=== PATIENT | male | born 1955 | race Caucasian/White ===

== ENCOUNTER 2020-06-08 10:25 | Observation (INO) ==
--- NOTE | 2020-05-07 21:50 | PAT Medication Instructions ---
Medication Instructions Date of Service May 07, 2020 Home Medications Medication Instructions Recorded cabergoline 0.5 mg tablet See Rx Instructions .ROUTE 01/10/20 .COMPLEX #14 tab Wheeled Walker #1 ea 04/22/20 atorvastatin 40 mg tablet 40 mg PO HS celecoxib 200 mg capsule 200 mg PO QAM cholecalciferol (vitamin D3) 50 mcg (2,000 unit) tablet 2,000 units PO DAILY losartan 50 mg tablet 50 mg PO HS testosterone 1.62 % (40.5 mg/2.5 gram) transdermal gel packet multivitamin 1 tab PO DAILY cabergoline 0.5 mg tablet qM/F Continue as directed testosterone 1.62 % (40.5 mg/2.5 gram) transdermal gel packet (do not place near surgical site) cabergoline 0.5 mg tablet qM/F (OK to take day of surgery if scheduled) ASK your surgeon for instructions celecoxib 200 mg capsule 200 mg PO QAM DO NOT take the morning of surgery cholecalciferol (vitamin D3) 50 mcg (2,000 unit) tablet 2,000 units PO DAILY multivitamin 1 tab PO DAILY Take evening before surgery atorvastatin 40 mg tablet 40 mg PO HS losartan 50 mg tablet 50 mg PO HS Other Notes If you have any questions please call us at [phone] or [phone] or [phone] or [phone]
--- NOTE | 2020-05-08 11:04 | Anesthesiology Consultation ---
Date of Service May 08, 2020 Assessment & Plan (1) Encounter for pre-operative examination: COVID Status: As of 05/08 assessment, patient denies travel to endemic area, known exposure/sick contacts, or symptoms of COVID19. He admits he has only been wearing a mask in public when it is enforced. Patient instructed to follow strict social distancing guidelines, wear a mask in public and avoid travel for 14 days prior to surgery. Preoperative COVID19 testing to be completed prior to surgery. Patient made aware to self-isolate as much as possible between COVID testing and surgery. *Pt is anxious re: spinal anesthesia and awareness during surgery. Reassurance provided. Chart Review Chart Review: Acceptable Risk for Surgery and Patient seen in Pre Admission Testing Teaching & Discussion Instructed NPO after midnight before surgery, except medications with 15 cc of water. Medication instructions provided according to the PAT guidelines. History Surgery Operation Date: 06/08/20 13:15 Proposed Procedures p Right Total Knee Replacement - James Rinaldi MD Height/Weight Height: 5 ft 8 in Weight: 80.6 kg Allergies Allergy/AdvReac Type Severity Reaction Status Date / Time No Known Drug Allergies Allergy Verified 05/05/20 13:51 Medications Home Medications Medication Instructions Recorded Confirmed Last Taken atorvastatin 40 mg tablet 40 mg PO HS 10/24/19 05/05/20 Unknown celecoxib 200 mg capsule 200 mg PO QAM 10/24/19 05/05/20 Unknown cholecalciferol (vitamin D3) 50 2,000 units PO DAILY 10/24/19 05/05/20 Unknown mcg (2,000 unit) tablet losartan 50 mg tablet 50 mg PO HS 10/24/19 05/05/20 Unknown testosterone 1.62 % (40.5 mg/2.5 See Rx Instructions TD .COMPLEX 10/24/19 05/05/20 Unknown gram) transdermal gel packet multivitamin 1 tab PO DAILY 11/14/19 05/05/20 Unknown cabergoline 0.5 mg tablet See Rx Instructions .ROUTE 01/10/20 05/05/20 Unknown .COMPLEX #14 tab Wheeled Walker #1 ea 04/22/20 Unknown Past Medical History Medical History (Updated 05/08/20 @ 16:19 by Iain Mistry) Bilateral knee pain Degenerative arthritis of knee, bilateral DJD (degenerative joint disease) of knee Hyperlipidemia Hypertension 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 On Cabergoline. Exercise / Class Metabolic Activity II 4-5 Yardwork/Stairs/Walk up hill (Denies CP or SOB with 1 FOS, would be more active if not for knee pain) Past Family History Family History Other No family history of adverse response to anesthesia Past Surgical History Surgical History History of colonoscopy History of cystoscopy urethra dilation S/P wisdom tooth extraction Past Anesthesia History No Hx of Anesthesia Complications and No Family Hx of Anesthesia Complications History of PONV No Hx of PONV and No Hx of Motion Sickness Social History Smoking Status: Never smoker tobacco type: smokeless tobacco Do You Dip or Chew Tobacco: No (quit 15 years ago) Hx Alcohol Use: Yes Alcohol type: hard liquor alcohol intake frequency: a few times a month Hx Substance Use: No substance use type: does not use Review of Systems Pt denies any recent chest pain, shortness of breath, palpitations, cough, fever or URI. Physical Exam Vital Signs BP: 147/93 (pt is pretty anxious today) P: 60bpm SPO2: 98% RA T: 98.6 F R: 12 ENMT Mouth: no dental restorations, no chipped teeth and no loose teeth Thyromental Distance: < 3.5 Finger Breadths (3) Mallampati Class: I Neck normal visual inspection and + facial hair (thin mustache); neck extension not limited Respiratory normal respiratory effort Auscultation: lungs clear to auscultation bilaterally Cardiovascular Rate/Rhythm: regular rate and regular rhythm Heart Sounds: no murmur Extremities: no edema Testing Laboratory Results 05/08/20 11:20 05/08/20 11:20 PT 10.0 Seconds (9.0-12.0) 05/08/20 11:20 INR 0.9 (0.9-1.1) 05/08/20 11:20 APTT 28.2 Seconds (21.0-31.0) 05/08/20 11:20 Blood Type O Positive 05/08/20 11:20 Antibody Screen NEGATIVE 05/08/20 11:20 Electrocardiogram Date: 05/08/20 Findings: + SB @ (58bpm) Chest X-Ray Date: 05/08/20 Findings: + NAD
--- NOTE | 2020-05-08 11:58 | XRay Report ---
XR chest Pre-admission PA/Lat CLINICAL HISTORY: Preoperative chest COMPARISON STUDY: No previous studies for comparison. FINDINGS: The cardiac and mediastinal contours are normal. There is no evidence of focal pulmonary co nsolidation. There is no evidence of failure. No pleural effusions are visualized.[ IMPRESSION: No active disease in the chest. ACT 112: Negative or not required by law. Electronically signed by: Ford Waters M.D. 05/08/2020 11:57 AM
[2020-05-08 12:22] LABS: Basophils # (auto) 0.02 K/uL (0-0.2); Basophils % (auto) 0.3 %; Eosinophils # (auto) 0.11 K/uL (0-0.5); Eosinophils % (auto) 1.8 %; Hematocrit (blood only) 39.8 % (42-52); Hemoglobin 13.5 g/dL (14.0-18.0); Immature Granulocytes # (auto) 0.01 K/uL (0.00-0.02); Immature Granulocytes % (auto) 0.2 %; Lymphocytes # (auto) 1.71 K/uL (1.2-3.4); Mean Corpuscular Hemoglobin 29.9 pg (25-34); Mean Corpuscular Hgb Conc 33.9 g/dL (32-36); Mean Corpuscular Volume 88.1 fL (80-100); Mean Platelet Volume 9.5 fL (7.4-10.4); Monocytes # (auto) 0.34 K/uL (0.11-0.59); Monocytes % (auto) 5.6 %; Neutrophils # (auto) 3.91 K/uL (1.4-6.5); Neutrophils % (auto) 64.1 %; Platelet Count 184 K/uL (130-400); RDW Coefficient of Variation 12.7 % (11.5-14.5); RDW Standard Deviation 40.9 fL (36.4-46.3); Red Blood Count 4.52 M/uL (4.7-6.1)
[2020-05-08 12:29] LABS: BUN Creatinine Ratio 21.8 (10-20); Calcium 9.3 mg/dl (8.5-10.1); Creatinine Clr Calc Pharmacy 72.4 ml/min; Est GFR (African American) 91.3; Est GFR (Non-African American) 78.8
[2020-05-08 12:33] LABS: INR 0.9 (0.9-1.1); Partial Thromboplastin Time 28.2 Seconds (21.0-31.0)
--- NOTE | 2020-05-08 15:53 | Electrocardiogram Report ---
Test Reason : Blood Pressure : / mmHG Vent. Rate : 058 BPM Atrial Rate : 058 BPM P-R Int : 162 ms QRS Dur : 082 ms QT Int : 428 ms P-R-T Axes : 075 064 018 degrees QTc Int : 420 ms Sinus bradycardia Otherwise normal ECG No previous ECGs available Confirmed by Alphonse Morel ([id number]) on 05/08/2020 3:52:57 PM Referred By: James Rinaldi Confirmed By:Alphonse Morel
--- NOTE | 2020-06-05 18:14 | History and Physical Report ---
DATE OF ADMISSION: 06/08/2020 CHIEF COMPLAINT: Bilateral knee pain and discomfort, right side greater than left. HISTORY OF PRESENT ILLNESS: The patient is a 65-year-old gentleman from [place], who presents for treatment of his knees. He has got a long history of bilateral knee pain and discomfort, the right side being a bit worse than the left. He says his knees have been bothering for as long as he can remember. He describes mostly medial pain but some global pain. The more he walks, the more they hurt. He has taken oral medicines which have really not helped much. He never had any injections, but not interested in any further conservative care. He has nighttime discomfort. He is tired of his knees and certainly would like to have them fixed. PAST MEDICAL HISTORY: 1. Hypertension. 2. Elevated cholesterol. 3. Osteoarthritis. PAST SURGICAL HISTORY: Includes unspecified urinary surgery 2 years ago in [place]. ALLERGIES: None. CURRENT MEDICATIONS: 1. Atorvastatin. 2. Cabergoline. 3. Celebrex. 4. Vitamin D3. 5. Losartan. 6. Multivitamin. 7. Testosterone. SOCIAL HISTORY: A 65-year-old male. He is from [place]. He is . Does not smoke. No significant alcohol intake. FAMILY HISTORY: Noncontributory. REVIEW OF HISTORY: Negative for diabetes, neurologic problem, vascular problems or bleeding disorders. Denies any chest pain or shortness of breath. No history of DVT or PE. No known bleeding problems. PHYSICAL EXAMINATION: GENERAL: Reveals a healthy, pleasant, middle-aged male. He looks to be in excellent health. HEENT: Benign. NECK: Supple, no lymphadenopathy. LUNGS: Clear to auscultation. HEART: Has a regular rate and rhythm. ABDOMEN: Soft, nontender, nondistended. EXTREMITIES: Grossly neurovascularly intact except as follows: Examination of both knees reveal patient ambulates independently. He has got varus alignment to both knees. Examination of the right knee reveals varus alignment. Small knee effusion. He is tender over the medial joint line. He has got bony hypertrophy medially. Range of motion 5-125. No instability. Examination of the left knee reveals similar varus alignment. He has got bony hypertrophy. Tender over the medial joint line. Small knee effusion. Range of motion 5-125. X-RAYS: X-rays of both knees were reviewed. It shows advanced bilateral knee DJD. He has got complete loss of his medial joint space on both sides. He has got patellofemoral disease, right side a bit worse than the left. He has got osteophytes medially in both knees. ASSESSMENT: A 65-year-old male with advanced bilateral knee degenerative joint disease. He has got multiple other comorbidities including hypertension, elevated cholesterol. He has failed conservative treatment and would like to have his right knee replaced. PLAN: We will proceed with right knee replacement. The risks and benefits of right total knee replacement were explained to the patient including but not limited to DVT, PE, , infection, neurological injury, vascular injury, bleeding problem, pain, limited range of motion, stiffness, failure to relieve symptoms, incomplete relief of symptoms, need for further surgery in the future, fracture, leg length inequality, nerve palsy, etc. The patient understands and desires to proceed. Informed consent was obtained. The patient is planning on using [facility] [employer] for postoperative therapy for the first 2 weeks.
[~2020-06-08 10:25] MED LIST: ACETAMINOPHEN 500 MG TAB PO SCH; BUPIVACAINE 0.5 % 5 MG/1 ML PF 10ML VIAL ONE; BUPIVACAINE LIPOSOME/PF 266 MG, BUPIVACAINE/EPINEPHRINE 50 ML, SODIUM CHLORIDE 0.9% 30 ... INFIL SCH; CEFAZOLIN 2000MG 2,000 MG/15 ML SYR IV SCH; EPINEPHrine INJ 1 MG/ML AMP ONE; FAMOTIDINE 20 MG TAB PO SCH; GABAPENTIN 600 MG DOSE PO SCH; LR 500ML BOLUS, THEN 15ML/HR IV SCH; LR 60ML/HR IV SCH; METOCLOPRAMIDE HCL 10 MG TABLET PO SCH; ROPIVACAINE 0.5% 5 MG/ML 30 ML VIAL ONE; TRANEXAMIC ACID 1,000 MG **IV Intra-op IV SCH
--- NOTE | 2020-06-08 11:20 | History & Physical Bridge Note ---
Date of Service June 08, 2020 History & Physical Bridge Note I have examined the patient, reviewed the History & Physical and in the interval since the performance of the History & Physical I have noted the following changes of clinical significance: no changes noted
[2020-06-08] MEDS ORDERED: MEPERIDINE HCL 25 MG/ML CARP/VIAL IV PRN (11:53)
[2020-06-08] MEDS ORDERED: LABETALOL HCL IV 5 MG/ML 20ML IV PRN (11:53)
[2020-06-08] MEDS ORDERED: fentaNYL citrate 100 MCG/2 ML VIAL IV PRN (11:53)
[2020-06-08] MEDS ORDERED: ePHEDrine sulfate 50 MG/ML AMP IV PRN (11:53)
[2020-06-08] MEDS ORDERED: ATROPINE SULFATE 0.1 MG/ML 10ML SYR IV PRN (11:53)
[2020-06-08] MEDS ORDERED: ONDANSETRON INJ 2 MG/ML 2 ML VIAL IV PRN ×2 (11:53→16:57)
[2020-06-08] MEDS ORDERED: PHENYLEPHRINE 100MCG/ML 5ML SYR IV PRN (11:53)
[2020-06-08] MEDS ORDERED: HYDROmorphone INJ 1 MG/ML SYRINGE IV PRN (11:53)
[2020-06-08] MEDS ORDERED: ONDANSETRON INJ 2 MG/ML 2 ML VIAL ONE (12:49)
[2020-06-08] MEDS ORDERED: PROPOFOL IV EMULSION 10 MG/ML 20 ML VIAL IV ONE ×3 (12:49→15:24)
[2020-06-08] MEDS ORDERED: MIDAZOLAM HCL 1 MG/ML 2ML VIAL ONE (12:49)
[2020-06-08] MEDS ORDERED: LIDOCAINE HCL 2% 2 ML VIAL/AMP(20MG/ML) INFIL ONE (12:49)
[2020-06-08] MEDS ORDERED: fentaNYL citrate 100 MCG/2 ML VIAL ONE (12:50)
[2020-06-08] MEDS ORDERED: BACITRACIN INJ 50,000 UNIT VIAL ONE (12:55)
[2020-06-08] MEDS ORDERED: BUPIVACAINE 0.25% 30 ML VIAL ONE (12:55)
[2020-06-08] MEDS ORDERED: EPINEPHrine INJ 1 MG/ML AMP ONE (12:55)
[2020-06-08] MEDS ORDERED: SODIUM CHLORIDE 0.9% PF 50 ML VIAL ONE (12:55)
[2020-06-08] MEDS ORDERED: BUPIVACAINE LIPOSOME 1.3% 266 MG/20 ML VIAL ONE (12:55)
[2020-06-08] MEDS ORDERED: PHENYLEPHRINE 100MCG/ML 5ML SYR ONE (15:02)
[2020-06-08] MEDS ORDERED: DEXAMETHASONE SOD INJ 4 MG/ML VIAL ONE (15:02)
--- NOTE | 2020-06-08 15:51 | Post Operative Brief Note ---
PG Immediate Post Op with CF Date of Surgery June 08, 2020 Pre & Post Diagnosis Operation Date: 06/08/20 12:30 Pre-Op Diagnosis: RIGHT KNEE DEGENERATIVE JOINT DISEASE, KNEE PAIN Post-Op Diagnosis: RIGHT KNEE DEGENERATIVE JOINT DISEASE, KNEE PAIN I identified the patient and participated in the time-out.: Yes Procedure Operation Date: 06/08/20 12:30 Actual Procedures p Right Total Knee Replacement(Right) - James Rinaldi MD Surgeon James Rinaldi MD Digital Sales Assistant [place], [facility] Estimated Blood Loss 50 Findings Consistent with Post-Op Diagnosis Fluids 1200 cc Specimens Specimen Description: A: Right Knee bone & tissue Drains Hopson Catheter Complications none Disposition Accompanied Patient To Recovery: No Disposition: Recovery Room
--- NOTE | 2020-06-08 16:10 | Anesthesiology Progress Note ---
Date of Service June 08, 2020 Anesthesia Post Procedure Vital Signs Vital Signs: Temp Pulse Pulse Resp BP BP Pulse Ox 06/08/20 16:00 65 18 127/64 100 06/08/20 15:52 36.6 C 62 18 134/69 96 06/08/20 11:45 63 20 158/85 H 98 06/08/20 10:59 37.2 C 70 20 159/90 H 98 Pain Intensity Right Knee: Pain Intensity: 0 Transfer of Care Handoff Completed per policy Notes Mental Status: alert / awake / arousable Patient Amnestic to Procedure: Yes Nausea / Vomiting: adequately controlled Pain: adequately controlled Airway Patency, RR, SpO2: stable & adequate BP & HR: stable & adequate and see Notes below Hydration State: stable & adequate Neuraxial Anesthesia: was administered and sensory block is resolving Anesthetic Complications: no major complications apparent and Pt Satisfied with anesthetic care Notes: The patient is awake and comfortable. He was noted to have some PVCs on his rhythm strip but is mostly in normal sinus rhythm with stable vital signs.
--- NOTE | 2020-06-08 16:16 | Operative Report ---
Post Operative Report Pre & Post Diagnosis Operation Date: 06/08/20 12:30 Pre-Op Diagnosis: RIGHT KNEE DEGENERATIVE JOINT DISEASE, KNEE PAIN Post-Op Diagnosis: RIGHT KNEE DEGENERATIVE JOINT DISEASE, KNEE PAIN I identified the patient and participated in the time-out.: Yes Procedure Operation Date: 06/08/20 12:30 Actual Procedures p Right Total Knee Replacement(Right) - James Rinaldi MD Surgeon James Rinaldi MD Diver Tender [place], PAC Estimated Blood Loss 50 Findings Consistent with Post-Op Diagnosis Operative findings revealed advanced right knee tricompartment DJD. He had extensive grade 4 [id number] disease in all 3 compartments most severe in the medial side. Large knee joint effusion. It fixed varus deformity to his knee with about a 10 to 15 degree flexion contracture. Fluids 1200 cc. Specimens Right knee sent for pathology. Drains None. Anesthesia Type Spinal MAC Complications none Disposition Accompanied Patient To Recovery: No Disposition: Recovery Room Indications Patient is a 65-year-old quite healthy gentleman is had a long history of bilateral knee pain discomfort the right side a bit worse than left. Is been through extensive conservative treatment as become less successful over time. X-rays show advanced bilateral knee DJD. He elected proceed with total knee arthroplasty. Late Nell, my physician dental hygiene administrative assistant, was present for the entire case. He was essential in critical to the entire procedure including prepping and draping, exposure, retraction, implantation of components, closure, and application of the sterile dressing. Description of Procedure Operative implants consist of: 1. Biomet Vanguard size 65 right posterior by femoral component. 2. Biomet size 71 tibial tray. 3. 12 mm posterior stabilized polyethylene insert. 4. 31 x 8 all poly-patella. Patient was taken to the operating room identified and placed on the operating table supine position protectors were properly padded. IV antibiotics arrived by anesthesia team. A spinal anesthetic and abductor canal block had provided holding area. Hopson catheter was placed in sterile fashion. Right thigh turn was then placed in the right lower extremities and prepped and draped in usual sterile fashion. The right leg was elevated exsanguinated with use of an Esmarch interspace at 300 mmHg. An anterior approach to the right knee was then performed to longitudinal incision centered over the patella. Sharp dissection was gone through subcutaneous tissue down to the extensor mechanism. A medial parapatellar arthrotomy incision was made. Some subperiosteal dissection was carried out medially. The fat pad resected from each patella tendon. Lateral patellofemoral ligament was released. Patella was subluxated laterally and the knee was flexed. I did do a pretty extensive posterior lateral exposure due to his varus deformity and flexion contracture. The osteophytes were taken off the distal femur. The ACL and PCL were then released from distal femur and the tibia subluxated anteriorly. The external treatment line jig was then placed in the interface the tibia and adjusted 16 mm medially. Proximal tibial cut was made to move out a millimeter bone from most efficient aspect the medial tibial plateau. Some osteophytes were taken off medial and posterior medially. The tibia was sized to a size 71. Attention then drawn the femur. The distal femur was entered with a sharp drill. Intramedullary canal was suction. A right 6 degree valgus cutting guide was placed. This femoral cutting block was pinned to take an additional 3 mm of bone off distal femur. The femur was then sized to a size 65. The AP cutting block was pinned parallel to the epicondylar axis which was 3 degrees of external rotation. The anterior cut, anterior chamfer, posterior cut, posterior chamfer cuts were made. Box cutting guide was placed in just slight lateral box cut was made. The knee was flexed. The remnants of the medial lateral menisci were excised. The osteophytes were taken off the posterior aspect of the femur. A trial femoral component was placed for the tibial tray was pinned in maximum external rotation and the drill and stem punch were used to create defect in proximal to for the tibial tray. The knee was then trialed and the 12 mm insert fit most appropriately. Attention drawn the patella. Patella was cleaned of all soft tissues. Patella thickness measured 23 mm in thickness was cut down to 14. Was sized to a size 31 patella. Locals were drilled for 31 patella. Lateral osteophytes removed. Patella button was placed. Knee was taken through range of motion and the patella tracked nicely with no thumbs test. Attention drawn to place the permanent components. All trial components were removed. A bone plug was placed in the distal femur limit blood loss put a double batch Palacos G cement was mixed. BiomKanari size 65 right posterior by femoral component, size 71 tibial tray, a 12 mm posterior stabilized insert, and a 31 x 8 all poly-patella were then cemented in place. Knee was brought out into full extension until cement hardened. Final cement check was then performed. Pericapsular tissues were injected with a total of 100 cc of combination of 20 cc of Exparel, 30 cc normal saline, 50 cc of quarter percent Marcaine with epinephrine. Patient did receive 1 g of tranexamic acid. The tourniquet was then let down for turn time 64 minutes. H emostasis assured use electrocautery. Extensor mechanism then closed with combination 1 PDS suture #1 Vicryl suture in [id number] fashion. Extensor mechanism checked found to be intact the subcutaneous tissue then closed with 2 Dexon suture in a buried interrupted fashion skin was closed skin dami. Leg was then cleaned and dried a sterile dressing composed Xeroform, 4 x 4's, sterile cast padding, Chris bandage were applied. Patient then transferred to the recovery room in stable condition. Patient tolerated procedure well and there were no complications. Everett Camejo, my physician dental hygiene administrative assistant, was present for the entire case. He was essentially critical for positioning the patient, prepping and draping, exposure, retraction, performing the bone cuts, performing implantation, valery sure, and application of the sterile dressing. I attest to the content of the Intraoperative Record and any orders documented therein. Any exceptions are noted below.
--- NOTE | 2020-06-08 16:22 | XRay Report ---
XR knee RT 1 or 2V routine CLINICAL HISTORY: Surgical Post Op postoperative evaluation COMPARISON: None. DISCUSSION: Total right knee arthroplasty. Good contact between prosthetic and underlying bone. Expec tracy postoperative soft tissue change IMPRESSION: Anatomic alignment post total right knee arthroplasty. ACT 112: Negative or not required by law. The above report was generated using voice recognition software. It may contain grammatical, syntax or spelling errors. Electronically signed by: Florin Candelaria M.D. 06/08/2020 4:21 PM
[2020-06-08] MEDS ORDERED: OXYCODONE HCL IR 5 MG TAB (IMMEDIATE RELEASE) PO PRN (16:57)
[2020-06-08] MEDS ORDERED: HYDROmorphone INJ 0.5 MG/0.5 ML SYR IV PRN (16:57)
[2020-06-08] MEDS ORDERED: METOCLOPRAMIDE HCL INJ 5 MG/ML 2 ML VIAL IV PRN (16:57)
[2020-06-08] MEDS ORDERED: TAMSULOSIN HCL 0.4 MG CAP PO PRN (16:57)
[2020-06-08] MEDS ORDERED: ALUMINUM/MAGNESIUM SUSP 30 ML UDC PO PRN (16:57)
[2020-06-08] MEDS ORDERED: bisacodyL 10 MG SUPP PR PRN (16:57)
[2020-06-08] MEDS ORDERED: MAGNESIUM HYDROXIDE SUSP 30 ML UDC PO PRN (16:57)
[2020-06-08] MEDS ORDERED: NALOXONE HCL 0.4 MG/1 ML VIAL/CARP IV PRN (16:57)
[2020-06-08] MEDS: Scopolamine CHECK PATCH PLACEMENT SCH ×2 (17:09→23:33)
[2020-06-08] MEDS ORDERED: SODIUM CHLORIDE 0.9% 1000ML 1,000 ML IV SCH (17:30)
[2020-06-08] MEDS: FERROUS GLUCONATE 324 MG TAB PO SCH (18:34)
[2020-06-08] MEDS: KETOROLAC 30 MG/ML VIAL IV SCH ×2 (18:34→23:33)
[2020-06-08] MEDS: ASCORBIC ACID 500 MG TAB PO SCH (18:34)
[2020-06-08] MEDS: DOCUSATE SODIUM 100 MG CAP PO SCH (20:41)
[2020-06-08] MEDS: ASPIRIN 81 MG ECTAB PO SCH (20:41)
[2020-06-08] MEDS: CEFAZOLIN 2000MG 2,000 MG/15 ML SYR IV SCH (20:43)
[2020-06-08] MEDS ORDERED: LOSARTAN POTASSIUM 50 MG TAB PO SCH (21:00)
[2020-06-08] MEDS ORDERED: SENNA 8.6 MG TAB PO SCH (21:00)
[2020-06-08] MEDS ORDERED: ATORVASTATIN 40 MG TAB PO SCH (21:00)
[2020-06-08] MEDS: ACETAMINOPHEN 500 MG TAB PO SCH (21:03)
[2020-06-08] MEDS ORDERED: TRANEXAMIC ACID / 0.7% NACL 1,000 MG/100 ML BAG IV SCH (21:56)
[2020-06-09] MEDS: CEFAZOLIN 2000MG 2,000 MG/15 ML SYR IV SCH (03:04)
[2020-06-09] MEDS: KETOROLAC 30 MG/ML VIAL IV SCH (05:57)
[2020-06-09] MEDS: ACETAMINOPHEN 500 MG TAB PO SCH (05:57)
[2020-06-09 07:04] LABS: Hematocrit (blood only) 34.5 % (42-52); Hemoglobin 11.9 g/dL (14.0-18.0); Mean Corpuscular Hemoglobin 30.4 pg (25-34); Mean Corpuscular Hgb Conc 34.5 g/dL (32-36); Mean Corpuscular Volume 88.2 fL (80-100); Mean Platelet Volume 9.5 fL (7.4-10.4); Platelet Count 191 K/uL (130-400); RDW Coefficient of Variation 12.8 % (11.5-14.5); Red Blood Count 3.91 M/uL (4.7-6.1); White Blood Count 14.22 K/uL (4.8-10.8)
[2020-06-09 07:29] LABS: Calcium 8.3 mg/dl (8.5-10.1); Creatinine Clr Calc Pharmacy 71.7 ml/min; Est GFR (African American) 90.2; Est GFR (Non-African American) 77.9; Potassium 4.3 mmol/L (3.5-5.1)
[2020-06-09] MEDS: ASPIRIN 81 MG ECTAB PO SCH (08:52)
[2020-06-09] MEDS: ASCORBIC ACID 500 MG TAB PO SCH (08:52)
[2020-06-09] MEDS: Scopolamine CHECK PATCH PLACEMENT SCH (08:52)
[2020-06-09] MEDS: DOCUSATE SODIUM 100 MG CAP PO SCH (08:52)
[2020-06-09] MEDS: FERROUS GLUCONATE 324 MG TAB PO SCH (08:52)
[2020-06-09] MEDS ORDERED: MULTIVITAMIN TAB PO SCH ×2 (09:00)
[2020-06-09] MEDS ORDERED: CHOLECALCIFEROL 1,000 UNITS 25 MCG TAB PO SCH (09:00)
--- NOTE | 2020-06-09 10:04 | Progress Notes ---
DATE: 06/09/2020 SUBJECTIVE: A 65-year-old gentleman postop day 1 from right knee replacement. He is doing pretty well. Had good night. Pain is controlled. No chest pain or shortness of breath. Not feeling dizzy or lightheaded. OBJECTIVE: VITAL SIGNS: Temperature 36.8. Vital signs stable. GENERAL: Shows a pleasant, healthy, middle-aged male. He is sitting up in his bedside chair, looks comfortable. LUNGS: Clear to auscultation. HEART: Has a regular rate and rhythm. ABDOMEN: Soft, nontender, nondistended. EXTREMITIES: Grossly neurovascularly intact except as follows. Examination of the right lower extremity reveals the dressing to be clean, dry and intact. Leg is well aligned. He can dorsiflex and plantarflex his foot appropriately. He is neurologically intact. He can do a straight leg raise. LABORATORY DATA: Hemoglobin is 11.9. Hematocrit 34.5. Electrolytes are stable. ASSESSMENT: A 65-year-old gentleman postop day 1 from right knee replacement, doing pretty well. His pain is controlled. He is neurologically intact. He is open to go home. PLAN: 1. DVT prophylaxis including thigh-high TEDs, SCDs, and aspirin twice a day. 2. PT/OT. Weight bear as tolerated. Right total knee protocol. 3. Pain control, doing well with current pain regimen. 4. Disposition: Plan to discharge to home with some home health later today if his pain is controlled and does okay in therapy.
--- NOTE | 2020-06-12 14:35 | Discharge Summary ---
Date of Service June 12, 2020 Admission HPI Per Admitting Provider Well documented in the H & P Admission Exam (Per Admitting) Constitutional Well documented in the H & P Discharge Data Consultations 06/08/20 16:57 Consult Case Management - Discharge Planning Routine Procedures Performed Operation Date: 06/08/20 12:30 Actual Procedures p Right Total Knee Replacement(Right) - James Rinaldi MD Hospital Course (1) Status post total right knee replacement: This patient is a 65 year old male admitted on 06/08/20 and underwent total knee replacement. He tolerated the procedure well and there were no complications. Transferred to the PACU post op and later to the orthopedic floor for further care. He was given ancef for antibiotic prophylaxis. He was also given RAGHAVENDRA stockings, SCDs, and aspirin for DVT prophylaxis. Hemoglobin, hematocrit, and vital signs were monitored during his hospital stay and remained stable. Did not require any blood transfusions. There were no complications during hishospital stay. By post op day #1 the patient was tolerating a regular diet, pain was reasonably controlled with oral pain medicine, and he was participating in physical therapy. On post op day #1 the patient was discharged home and set up with home health care. He was given printed discharge instructions including prescriptions for extra strength tylenol, aspirin, and oxycodone. Continue physical therapy, weight bearing as tolerated. Continue RAGHAVENDRA stockings. Follow up approximately 2 weeks post op or sooner if there are problems or concerns. Coding Level of Care Code None Diagnoses Status post total right knee replacement Z96.651
== END 2020-06-09 11:08 | disposition home health service (06) ==
LOC: 3E 10:25 → ASU 10:25

== ENCOUNTER 2020-12-23 10:15 | Observation (INO) ==
--- NOTE | 2020-10-26 11:47 | Anesthesiology Consultation ---
Date of Service October 26, 2020 Assessment & Plan (1) Encounter for pre-operative examination: - Per assessment on 10/26: Travel screen negative. No known COVID-19 positive contacts or current COVID-19 related symptoms. Surgeon arranging preop COVID testing (pt states scheduled 11/11; JOCEG)- spoke with surgeon's office to make them aware of recommendation for patient to have preop COVID test day prior if possible d/t possible delays with upcoming holiday. They will contact patient to reschedule preop COVID test to 11/10. Awaiting results. - S/P Right TKA: 06/08/20: SAB x1 attempt + PNB at [facility] (per anesthesia post procedure note: "Anesthetic Complications: no major complications apparent and Pt Satisfied with anesthetic care.. Notes: The patient is awake and comfortable. He was noted to have some PVCs on his rhythm strip but is mostly in normal sinus rhythm with stable vital signs." No complications during hospital stay per discharge summary. Chart Review Chart Review: Acceptable Risk for Surgery and Patient NOT seen in Pre Admission Testing History Surgery Operation Date: 11/17/20 07:00 Proposed Procedures p Left Total Knee Arthroplasty - James Rinaldi MD Height/Weight Height: 5 ft 9 in Weight: 79.379 kg Allergies Allergy/AdvReac Type Severity Reaction Status Date / Time No Known Drug Allergies Allergy Verified 10/26/20 11:03 Medications Home Medications Medication Instructions Recorded Confirmed Last Taken atorvastatin 40 mg tablet 40 mg PO HS 10/24/19 10/26/20 06/07/20 19:30 celecoxib 200 mg capsule 200 mg PO QAM 10/24/19 10/26/20 06/07/20 05:30 cholecalciferol (vitamin D3) 50 2,000 units PO QAM 10/24/19 10/26/20 06/07/20 05:30 mcg (2,000 unit) tablet losartan 50 mg tablet 50 mg PO HS 10/24/19 10/26/20 06/07/20 19:30 multivitamin 1 tab PO QAM 11/14/19 10/26/20 06/07/20 05:30 cabergoline 0.5 mg tablet See Rx Instructions .ROUTE 01/10/20 10/26/20 06/05/20 .COMPLEX #14 tab Wheeled Walker #1 ea 04/22/20 06/22/20 Unknown oxycodone 5 - 10 mg PO Q6H PRN #40 tab 06/09/20 10/26/20 Unknown testosterone 1.62 % (40.5 mg/2.5 See Rx Instructions TD .COMPLEX 08/09/20 10/26/20 Unknown gram) transdermal gel packet #150 g Past Medical History Medical History Bilateral knee pain Degenerative arthritis of knee, bilateral DJD (degenerative joint disease) of knee Hyperlipidemia Hypertension Hypogonadotropic hypogonadism in male Osteoarthritis Pituitary aden[place] Norman [place] [facility] [place] Past Family History Family History Other No family history of adverse response to anesthesia Past Surgical History Surgical History History of colonoscopy History of cystoscopy urethra dilation History of right knee joint replacement Right TKA: 06/08/20: SAB x1 attempt + PNB at [facility] S/P wisdom tooth extraction Social History Smoking Status: Never smoker tobacco type: smokeless tobacco Do You Dip or Chew Tobacco: No Hx Alcohol Use: Yes Alcohol type: beer, wine and hard liquor alcohol intake frequency: a few times a week Hx Substance Use: No substance use type: does not use Testing Laboratory Results 10/14/20 WBC 6.45 H/H 13.5/40.1 PLATELETS 218 SODIUM 139 POTASSIUM 3.9 CHLORIDE 107 CO2 29 BUN 17 CREATININE 0.89 GLUCOSE PT 10.3 PTT 28.9 INR 1.0 TYPE AND SCREEN O+Ab- Electrocardiogram Date: 05/08/20 Findings: + SB @ (58) Chest X-Ray Date: 05/08/20 Findings: + NAD
--- NOTE | 2020-12-18 10:39 | Anesthesiology Consultation ---
Date of Service December 18, 2020 Assessment & Plan (1) Encounter for pre-operative examination: Chart Review Chart Review: Acceptable Risk for Surgery (pending preop Covid testing ) and Patient NOT seen in Pre Admission Testing Will leave to anesthesiologist discretion DOS if updated coags needed. Per nursing assessment 10/26/2020, patient denies any recent travel. No known Covid positive contacts or Covid related symptoms. Covid test 12/17/20= results pending Right TKA: 06/08/20: SAB x1 attempt + PNB at [facility] (per anesthesia post procedure note: "Anesthetic Complications: no major complications apparent and Pt Satisfied with anesthetic care.. Notes: The patient is awake and comfortable. He was noted to have some PVCs on his rhythm strip but is mostly in normal sinus rhythm with stable vital signs." No complications during hospital stay per discharge summary. History Surgery Operation Date: 12/23/20 12:30 Proposed Procedures p Left Total Knee Arthroplasty - James Rinaldi MD Height/Weight Height: 5 ft 9 in Weight: 79.379 kg Allergies Allergy/AdvReac Type Severity Reaction Status Date / Time No Known Drug Allergies Allergy Verified 12/23/20 10:40 Medications Home Medications Medication Instructions Recorded Confirmed Last Taken atorvastatin 40 mg tablet 40 mg PO HS 10/24/19 12/23/20 12/21/20 20:00 celecoxib 200 mg capsule 200 mg PO QAM 10/24/19 12/23/20 12/22/20 08:00 cholecalciferol (vitamin D3) 50 2,000 units PO QAM 10/24/19 12/23/20 12/22/20 08:00 mcg (2,000 unit) tablet losartan 50 mg tablet 50 mg PO HS 10/24/19 12/23/20 12/22/20 20:00 multivitamin 1 tab PO QAM 11/14/19 12/23/20 12/22/20 08:00 Wheeled Walker #1 ea 04/22/20 06/22/20 Unknown oxycodone 5 - 10 mg PO Q6H PRN #40 tab 06/09/20 12/23/20 Unknown cabergoline 0.5 mg tablet See Rx Instructions .ROUTE 12/08/20 12/23/20 12/21/20 21:00 .COMPLEX #8 tab testosterone 1.62 % (40.5 mg/2.5 See Rx Instructions TD .COMPLEX 12/11/20 12/23/20 Unknown gram) transdermal gel packet #150 g aspirin 1 tab PO DAILY 12/23/20 12/23/20 12/21/20 08:00 Active Medications Generic Name Dose Route Start Last Admin Trade Name Kota PRN Reason Stop Dose Admin Acetaminophen 1,000 mg 12/23/20 06:00 12/23/20 11:15 Acetaminophen 500 Mg Tab PO 12/23/20 18:00 1,000 mg PREOP BRADEN Administration Famotidine 20 mg 12/23/20 06:00 12/23/20 11:14 Famotidine 20 Mg Tab PO 12/23/20 18:00 20 mg PREOP BRADEN Administration Gabapentin 600 mg 12/23/20 06:00 12/23/20 11:15 Gabapentin 600 Mg Dose PO 12/23/20 18:00 600 mg PREOP BRADEN Administration Lactated Ringer's 1,000 mls @ 15 mls/hr 12/23/20 06:00 12/23/20 11:10 Lr IV 12/23/20 18:00 15 mls/hr .Q24H BRADEN Administration Lactated Ringer's 1,000 mls @ 60 mls/hr 12/23/20 06:00 12/23/20 11:15 Lr IV 12/23/20 22:39 Not Given .[id number] BRADEN Metoclopramide HCl 10 mg 12/23/20 06:00 12/23/20 11:14 Metoclopramide Hcl 10 Mg Tablet PO 12/23/20 18:00 10 mg PREOP BRADEN Administration Scopolamine 1.5 mg 12/23/20 06:00 12/23/20 11:15 Scopolamine 1.5 Mg Tdsy TD 12/23/20 18:00 1.5 mg PREOP BRADEN Administration Past Medical History Medical History DJD (degenerative joint disease) of knee Hyperlipidemia Hypertension Hypogonadotropic hypogonadism in male Pituitary adenoma following with Dr Norman [place] [facility] [place] Caberg[place] Past Family History Family History Other No family history of adverse response to anesthesia Past Surgical History Surgical History History of colonoscopy History of cystoscopy urethra dilation History of right knee joint replacement Right TKA: 06/08/20: SAB x1 attempt + PNB at [facility] S/P wisdom tooth extraction Social History Smoking Status: Never smoker tobacco type: smokeless tobacco Do You Dip or Chew Tobacco: No Hx Alcohol Use: Yes Alcohol type: beer, wine and hard liquor alcohol intake frequency: a few times a week Hx Substance Use: No substance use type: does not use Physical Exam Vital Signs Last Vital Signs Temp 37.1 C 12/23/20 10:44 Pulse 76 12/23/20 10:44 Resp 18 12/23/20 10:44 BP 164/95 H 12/23/20 10:44 Pulse Ox 97 12/23/20 10:44 Testing Laboratory Results Blood Type O Positive 12/23/20 10:34 Antibody Screen NEGATIVE 12/23/20 10:34 Laboratory Tests 10/14/20 12/17/20 12/17/20 10:13 08:09 08:11 WBC Hgb Hct Plt Count PT 10.3 INR 1.0 APTT 28.9 Sodium 143 Potassium 4.1 Chloride 110 H Carbon Dioxide 30 BUN 21 H Creatinine 0.96 Fasting Glucose 99 TSH 1.570 12/17/20 08:11 WBC 5.08 Hgb 14.1 Hct 41.8 L Plt Count 180 PT INR APTT Sodium Potassium Chloride Carbon Dioxide BUN Creatinine Fasting Glucose TSH 10/14/20= T&S= O positive, antibody negative Electrocardiogram Date: 05/08/20 Findings: + SB @ (58) Chest X-Ray Date: 05/08/20 Findings: + NAD
--- NOTE | 2020-12-19 11:39 | History and Physical Report ---
DATE OF ADMISSION: 12/23/2020 CHIEF COMPLAINT: Persistent left knee pain and discomfort. HISTORY OF PRESENT ILLNESS: The patient is a 65-year-old gentleman from [place], who now presents for surgical treatment of his left knee. He had his right knee replaced back in May of last year. He has done well from this. He continues to be bothered by left knee pain and discomfort that has gradually gotten worse over time. Pain is mostly medial, but some global pain. The more he is up and walks, the more it hurts. He is limited by his left knee pain. He would like to have his left knee fixed. He has failed conservative measures in the past. PAST MEDICAL HISTORY: 1. Hypertension. 2. Elevated cholesterol. 3. Osteoarthritis. PAST SURGICAL HISTORY: Include: 1. Unspecified urinary surgery 2 years ago in [place]. 2. Right knee replacement done on 06/08/2020. ALLERGIES: None. CURRENT MEDICATIONS: 1. Atorvastatin. 2. Cabergoline. 3. Celebrex. 4. Vitamin D3. 5. Losartan. 6. Multivitamin. 7. Testosterone. SOCIAL HISTORY: A 65-year-old male. He is from [place]. He is . Does not smoke. No significant alcohol intake. FAMILY HISTORY: Noncontributory. REVIEW OF HISTORY: Negative for diabetes, neurologic problem, vascular problems, bleeding disorders. No chest pain or shortness of breath. No history of DVT or PE. PHYSICAL EXAMINATION: GENERAL: Shows a pleasant, middle-aged male, looks to be in good health. HEENT: Benign. NECK: Supple, no lymphadenopathy. LUNGS: Clear to auscultation. HEART: Has a regular rate and rhythm. ABDOMEN: Soft, nontender, nondistended. EXTREMITIES: Grossly neurovascularly intact except as follows. Examination of the left knee reveals the patient ambulates independently. He has got varus deformity to his knee. He has got a varus thrust with weightbearing. Small knee effusion. He is tender over the medial joint line. Range of motion is 5-120. No instability. No pain with hip motion. Examination of the right knee reveals well-healed incision. Neutral alignment. Minimal swelling. Range of motion 0-120. Good straight leg raise. X-RAYS: X-rays of the left knee revealed advanced left knee DJD. He has got complete loss of his medial joint space. He has got chondrocalcinosis laterally. He has got subchondral sclerosis. ASSESSMENT: A 65-year-old gentleman now 6+ months out from a right knee replacement with advanced left knee degenerative joint disease. He has failed conservative treatment and would like to have his left knee replaced. PLAN: We are going to proceed with left knee replacement. The risks and benefits of this procedure were explained to the patient including but not limited to DVT, PE, , infection, neurological injury, vascular injury, bleeding problem, pain, limited range of motion, stiffness, failure with symptoms, incomplete relief of symptoms, need for further surgery in future, fracture, leg length inequality, nerve palsy, etc. The patient understands and desires to proceed. Informed consent was obtained. As far as discharge plans, he is planning to be discharged to home using [facility] home health program.
[~2020-12-23 10:15] MED LIST changes: -CEFAZOLIN 2000MG 2,000 MG/15 ML SYR IV SCH; +ceFAZolin 2000MG 2,000 MG/15 ML SYR IV SCH
[2020-12-23] MEDS ORDERED: ePHEDrine sulfate 50 MG/ML AMP IV PRN (10:55)
[2020-12-23] MEDS ORDERED: ONDANSETRON INJ 2 MG/ML 2 ML VIAL IV PRN ×2 (10:55→16:43)
[2020-12-23] MEDS ORDERED: HYDROmorphone INJ 1 MG/ML SYRINGE IV PRN (10:55)
[2020-12-23] MEDS ORDERED: LABETALOL HCL IV 5 MG/ML 20ML IV PRN (10:55)
[2020-12-23] MEDS ORDERED: MEPERIDINE HCL 25 MG/ML CARP/VIAL IV PRN (10:55)
[2020-12-23] MEDS ORDERED: fentaNYL citrate 100 MCG/2 ML VIAL IV PRN (10:55)
[2020-12-23] MEDS ORDERED: PHENYLEPHRINE 100MCG/ML 5ML SYR IV PRN (10:55)
[2020-12-23] MEDS ORDERED: ATROPINE SULFATE 0.1 MG/ML 10ML SYR IV PRN (10:55)
--- NOTE | 2020-12-23 11:01 | History & Physical Bridge Note ---
Date of Service December 23, 2020 History & Physical Bridge Note I have examined the patient, reviewed the History & Physical and in the interval since the performance of the History & Physical I have noted the following changes of clinical significance: no changes noted
[2020-12-23] MEDS ORDERED: MIDAZOLAM HCL 1 MG/ML 2ML VIAL ONE (12:17)
[2020-12-23] MEDS ORDERED: EPINEPHrine INJ 1 MG/ML AMP ONE (13:00)
[2020-12-23] MEDS ORDERED: BUPIVACAINE LIPOSOME 1.3% 266 MG/20 ML VIAL ONE (13:01)
[2020-12-23] MEDS ORDERED: SODIUM CHLORIDE 0.9% PF 50 ML VIAL ONE (13:01)
[2020-12-23] MEDS ORDERED: BACITRACIN INJ 50,000 UNIT VIAL ONE (13:01)
[2020-12-23] MEDS ORDERED: BUPIVACAINE 0.25% 30 ML VIAL ONE (13:02)
[2020-12-23] MEDS ORDERED: LIDOCAINE HCL 2% 2 ML VIAL/AMP(20MG/ML) INFIL ONE (14:22)
[2020-12-23] MEDS ORDERED: PROPOFOL IV EMULSION 10 MG/ML 20 ML VIAL IV ONE (14:22)
--- NOTE | 2020-12-23 15:08 | Operative Report ---
Post Operative Report Pre & Post Diagnosis Operation Date: 12/23/20 12:30 Pre-Op Diagnosis: Left Knee Advanced Degenerative Joint Disease Post-Op Diagnosis: Left Knee Advanced Degenerative Joint Disease I identified the patient and participated in the time-out.: Yes Procedure Operation Date: 12/23/20 12:30 Actual Procedures p Left Total Knee Arthroplasty(Left) - James Rinaldi MD Surgeon James Rinaldi MD Engineering Geologist PEDRO Vincent Estimated Blood Loss 50 Findings Consistent with Post-Op Diagnosis Operative findings revealed advanced left knee DJD with extensive grade 4 [id number] disease the medial and patellofemoral compartment. He had a fixed varus deformity to his knee. Large knee joint effusion. Slight flexion contracture about 5 to 10 degrees. Fluids 1200 cc Specimens Left knee sent for pathology. Drains None. Anesthesia Type Spinal MAC Complications none Disposition Accompanied Patient To Recovery: No Disposition: Recovery Room Indications Patient is a 65-year-old gentleman said a long history of knee pain and discomfort describes gotten worse over the years. He has been through extensive conservative treatment. Need his right knee replaced about 6 months ago and is done well from this. I continue to be limited by left knee pain discomfort and swelling. He elected to do a left total knee arthroplasty. Description of Procedure Operative implants consist of: 1. Biomet Vanguard size 65 left posterior stabilized femoral component. 2. Biomet size 75 tibial tray. 3. 10 mm posterior stabilized polyethylene insert. 4. 31 x 8 all polypatella. The patient was taken to the operating identified and placed on the operating table supine position but all contact areas were properly padded. IV antibiotics tried by anesthesia team. A spinal anesthetic and abductor canal block had been divided in holding area. Hopson catheter was placed in sterile fashion for the left thigh turn was then placed in the left lower extremities and prepped draped in usual sterile fashion. The left leg was elevated exsanguinated with use of an Esmarch and turns placed at 300 mmHg. An anterior approach left knee was then performed to longitudinal incision centered over the patella. Sharp dissection was got through subcutaneous tissue down to the extensor mechanism. A medial parapatellar arthrotomy incision was made. Some subperiosteal dissection was carried out medially. The fat pad was dissected from each patella tendon. Lateral patellofemoral ligament was released. Patella was subluxated laterally and the knee was flexed. The osteophytes were taken off the distal femur. The ACL and PCL were then released from distal femur the tibia subluxated anteriorly. The external treatment line jig was then placed in the interface the tibia and adjusted 14 mm medially. Proximal tibial cut was made essentially flush with the most deficient aspect the medial tibial plateau. This did take a fairly large piece off laterally. The tibia was sized to a size 75. Some osteophytes were taken off medial and posterior medially. Attention then drawn the femur. The distal femur was entered with a sharp drop with intramedullary canal was suction. A left 6 degree valgus cutting guide was placed. Distal femoral cutting block was pinned in place but distal femoral cut was made to take an additional 3 mm of bone off distal femur. The femur was then sized to a size 65. We did downsize this by to half a size. The AP cutting block was pinned parallel to the epicondylar axis which was 5 degrees of external rotation. The anterior cut, anterior chamfer, posterior cut, posterior chamfer cuts were made. Box cutting guide was placed in just slight lateral box cut was made. The knee was flexed. The remnants of the medial lateral menisci were excised. The osteophytes were taken off the posterior aspect the femur. A trial femoral component was placed. The tibial tray was pinned in maximum external rotation and the drill and stem punch she used to create the defect in proximal tibia for the tibial tray. Knee was then trialed and the 10 mm insert fit most appropriately. Attention drawn the patella. The patella was cleaned of all soft tissues. Patella thickness measured 22 mm in thickness was cut down to 13. Was sized to a size 31 patella. The lug holes were drilled for 31 patella. The lateral osteophyte was removed. Patella button was placed. Knee was taken through range of motion patella tracked nicely with no thumbs test. Attention drawn toward placing the permanent components. All trial components were removed. A bone plug was placed in the distal femur limit blood loss. Batch Palacos G cement was mixed. A Biomet Vanguard size 65 left posterior stabilized femoral component, a size 75 tibial tray, 10 mm posterior stabilized polyethylene insert, and a 31 x 8 all polypatella were then cemented in place. The knee was brought out into full extension total cement hardened. Final cement check was then performed. Pericapsular tissues were injected with total 100 cc of combination of 20 cc of Exparel, 30 cc normal saline, 50 cc of quarter percent Marcaine with epinephrine. Patient did receive 1 g tranexamic acid. The tourniquet was then let down for final turn time 60 minutes. Hemostasis assured use electrocautery. The wounds once again irrigated the extensor mechanism closed with combination 1 PDS suture #1 Vicryl suture in [id number] fashion. Extensor mechanism checked found to be intact the subcutaneous tissue then closed with 2 Dexon suture in buried in a fashion skin was closed skin dami. Leg was then cleaned dried a sterile dressing was Xeroform, 4 x 4's, sterile cast padding, Chris bandage were applied. Patient then transferred to the recovery room in stable condition. Patient tolerated procedure well and there were no complications. Everett Vincent, my physician store administrative assistant, was present for the entire procedure. His assistance was essential and required for appropriate patient positioning, prepping and draping, surgical exposure, performing the technical details of the operation, placement the implants, closure of the wound, and placement of the sterile bandage. I attest to the content of the Intraoperative Record and any orders documented therein. Any exceptions are noted below.
--- NOTE | 2020-12-23 15:29 | XRay Report ---
TWO VIEWS LEFT KNEE CLINICAL HISTORY: Postoperative examination. FINDINGS: AP and crosstable lateral portable views of the left knee are obtained. A left knee arthrop lasty is in near anatomic alignment. There has been undersurface remodeling of the patella. No acute fracture is seen. There are expected postoperative changes around the knee including skin clips, soft tissue edema, and subcutaneous gas. IMPRESSION: Expected postoperative changes status post left knee arthroplasty. No acute fracture is s een. ACT 112: Negative or not required by law. Electronically signed by: Howard Lopez M.D. 12/23/2020 3:28 PM
--- NOTE | 2020-12-23 16:07 | Anesthesiology Progress Note ---
Date of Service December 23, 2020 Anesthesia Post Procedure Vital Signs Vital Signs: Temp Pulse Pulse Resp BP BP Pulse Ox 12/23/20 15:55 63 22 143/89 H 97 12/23/20 15:45 74 16 138/88 95 12/23/20 15:35 72 16 168/85 H 97 12/23/20 15:25 66 15 147/86 H 100 12/23/20 15:15 72 15 142/84 H 100 12/23/20 15:09 36.6 C 81 16 140/84 98 12/23/20 10:44 37.1 C 76 18 164/95 H 97 Transfer of Care Handoff Completed per policy Notes Mental Status: alert / awake / arousable Patient Amnestic to Procedure: Yes Nausea / Vomiting: adequately controlled Pain: adequately controlled Airway Patency, RR, SpO2: stable & adequate BP & HR: stable & adequate Hydration State: stable & adequate Neuraxial Anesthesia: was administered and sensory block is resolving Anesthetic Complications: no major complications apparent and Pt Satisfied with anesthetic care
[2020-12-23] MEDS ORDERED: PNEUMOCOCCAL POLYSACCHARIDES 25 MCG/0.5 ML VIAL/SYR IM ONE (16:37)
[2020-12-23] MEDS ORDERED: PNEUMOCOCCAL ADMINISTRATION CHARGE ONE (16:37)
[2020-12-23] MEDS ORDERED: ALUMINUM/MAGNESIUM SUSP 30 ML UDC PO PRN (16:43)
[2020-12-23] MEDS ORDERED: diphenhydrAMINE Capsule 25 MG CAP PO PRN (16:43)
[2020-12-23] MEDS ORDERED: METOCLOPRAMIDE HCL INJ 5 MG/ML 2 ML VIAL IV PRN (16:43)
[2020-12-23] MEDS ORDERED: TAMSULOSIN HCL 0.4 MG CAP PO PRN (16:43)
[2020-12-23] MEDS ORDERED: NALOXONE HCL 0.4 MG/1 ML VIAL/CARP IV PRN (16:43)
[2020-12-23] MEDS ORDERED: bisacodyL 10 MG SUPP PR PRN (16:43)
[2020-12-23] MEDS ORDERED: MAGNESIUM HYDROXIDE SUSP 30 ML UDC PO PRN (16:43)
[2020-12-23] MEDS ORDERED: SODIUM CHLORIDE 0.9% 1000ML 1,000 ML IV SCH (16:43)
[2020-12-23] MEDS ORDERED: HYDROmorphone INJ 0.5 MG/0.5 ML SYR IV PRN (16:43)
[2020-12-23] MEDS ORDERED: oxyCODONE HCL IR 5 MG TAB (IMMEDIATE RELEASE) PO PRN (16:43)
[2020-12-23] MEDS: Scopolamine CHECK PATCH PLACEMENT SCH (17:08)
[2020-12-23] MEDS: ASCORBIC ACID 500 MG TAB PO SCH (17:19)
[2020-12-23] MEDS: FERROUS GLUCONATE 324 MG TAB PO SCH (17:19)
[2020-12-23] MEDS: KETOROLAC 30 MG/ML VIAL IV SCH (17:24)
[2020-12-23] MEDS: ceFAZolin 2000MG 2,000 MG/15 ML SYR IV SCH (20:34)
[2020-12-23] MEDS: TAPENTADOL HCL ER 50 MG TABCR PO SCH (20:43)
[2020-12-23] MEDS: DOCUSATE SODIUM 100 MG CAP PO SCH (20:44)
[2020-12-23] MEDS: ASPIRIN 81 MG ECTAB PO SCH (20:44)
[2020-12-23] MEDS: ACETAMINOPHEN 500 MG TAB PO SCH (20:46)
[2020-12-23] MEDS ORDERED: ATORVASTATIN 40 MG TAB PO SCH (21:00)
[2020-12-23] MEDS ORDERED: LOSARTAN POTASSIUM 50 MG TAB PO SCH (21:00)
[2020-12-23] MEDS ORDERED: SENNA 8.6 MG TAB PO SCH (21:00)
[2020-12-23] MEDS ORDERED: TRANEXAMIC ACID / 0.7% NACL 1,000 MG/100 ML BAG IV SCH (21:12)
[2020-12-24] MEDS: KETOROLAC 30 MG/ML VIAL IV SCH ×2 (00:04→05:45)
[2020-12-24] MEDS: Scopolamine CHECK PATCH PLACEMENT SCH ×2 (00:05→08:30)
[2020-12-24] MEDS: ceFAZolin 2000MG 2,000 MG/15 ML SYR IV SCH (05:42)
[2020-12-24] MEDS: ACETAMINOPHEN 500 MG TAB PO SCH (05:46)
[2020-12-24 05:52] LABS: Hematocrit (blood only) 34.7 % (42-52); Hemoglobin 11.9 g/dL (14.0-18.0); Mean Corpuscular Hemoglobin 29.8 pg (25-34); Mean Corpuscular Hgb Conc 34.3 g/dL (32-36); Mean Platelet Volume 8.9 fL (7.4-10.4); Platelet Count 167 K/uL (130-400); RDW Coefficient of Variation 13.1 % (11.5-14.5); RDW Standard Deviation 41.9 fL (36.4-46.3); Red Blood Count 3.99 M/uL (4.7-6.1); White Blood Count 7.95 K/uL (4.8-10.8)
[2020-12-24 06:25] LABS: BUN Creatinine Ratio 17.8 (10-20); Calcium 8.3 mg/dl (8.5-10.1); Creatinine Clr Calc Pharmacy 78.8 ml/min; Est GFR (African American) 97.1; Est GFR (Non-African American) 83.8; Potassium 3.9 mmol/L (3.5-5.1)
--- NOTE | 2020-12-24 07:15 | Orthopedic Progress Note ---
Date of Service December 24, 2020 Assessment & Plan (1) Status post total left knee replacement: He was seen examined by Dr. Rinaldi today as well. We will plan on discharge home with home health today. Given dressing supplies he can change his dressing on postoperative day 2. Continue RAGHAVENDRA stockings SCDs and aspirin for DVT prophylaxis today. Continue physical therapy. Follow-up proximately 2 weeks postoperatively. Subjective .65-year-old male postop day 1 from left total knee arthroplasty. He is doing well today. His pain is been controlled. Denies any chest pain or shortness of breath. Review of Systems All systems reviewed & are unremarkable except as noted in HPI & below. Physical Exam . He is alert and oriented. No acute distress. On exam the left leg today is dressing is intact. There is some slight drainage on it. Is able to dorsiflex plantarflex well. He can do a straight leg raise. He is neurovascular intact. Results & Data Results & Data Laboratory Results . Diagnostic Findings . PG Care Time/CCT Total # of Minutes Spent Total Time Spent with Patient: Total time spent is greater than 50% in coordination of care (as documented) at patient's floor/unit and/or counseling patient: Coding Level of Care Code 04735 Post Operative Follow-Up Diagnoses Status post total left knee replacement Z96.652
[2020-12-24] MEDS ORDERED: dexAMETHasone 4 MG TAB PO SCH (08:00)
[2020-12-24] MEDS: ASCORBIC ACID 500 MG TAB PO SCH (08:32)
[2020-12-24] MEDS: DOCUSATE SODIUM 100 MG CAP PO SCH (08:32)
[2020-12-24] MEDS: FERROUS GLUCONATE 324 MG TAB PO SCH (08:32)
[2020-12-24] MEDS: ASPIRIN 81 MG ECTAB PO SCH (08:32)
[2020-12-24] MEDS: TAPENTADOL HCL ER 50 MG TABCR PO SCH (08:34)
[2020-12-24] MEDS ORDERED: MULTIVITAMIN TAB PO SCH ×2 (09:00)
[2020-12-24] MEDS ORDERED: CHOLECALCIFEROL 1,000 UNITS 25 MCG TAB PO SCH (09:00)
--- NOTE | 2020-12-28 15:20 | Discharge Summary ---
Date of Service December 28, 2020 Discharge Data Consultations 12/23/20 16:43 Consult Case Management - Discharge Planning Routine Procedures Performed Operation Date: 12/23/20 12:30 Actual Procedures p Left Total Knee Arthroplasty(Left) - James Rinaldi MD Hospital Course (1) Status post total left knee replacement: This patient is a 65 year old male admitted on 12/23/20 and underwent total knee arthroplasty. He tolerated the procedure well and there were no complications. Transferred to the PACU post op and later to the orthopedic floor for further care. He was given ancef for antibiotic prophylaxis. He was also given RAGHAVENDRA stockings, SCDs, and aspirin for DVT prophylaxis. Hemoglobin, hematocrit, and vital signs were monitored during his hospital stay and remained stable. Did not require any blood transfusions. There were no complications during his hospital stay. By post op day #1 the patient was tolerating a regular diet, pain was reasonably controlled with oral pain medicine, and he was participating in physical therapy. On post op day #1 the patient was discharged home and set up with home health care. He was given printed discharge instructions including prescriptions for extra strength tylenol, aspirin, and oxycodone. Continue physical therapy, weight bearing as tolerated. Continue RAGHAVENDRA stockings. Follow up approximately 2 weeks post op or sooner if there are problems or concerns. Coding Level of Care Code None Diagnoses Status post total left knee replacement Z96.652
== END 2020-12-24 10:47 | disposition home health service (06) ==
LOC: 3E 10:15 → ASU 10:15